=== PATIENT | female | born 1995 | race Caucasian/White ===

== ENCOUNTER 2021-10-05 12:25 | Outpatient (REF) | payer MEDICAID, OTHER, SELFPAY ==
--- NOTE | ~2021-10-05 | XR_ITS ---
EXAMINATION: XR LUMBOSACRAL SPINE CLINICAL INFORMATION: Low back pain COMPARISON: None TECHNIQUE: Three views of the lumbosacral spine. FINDINGS: Normal alignment of the lumbar spine. Lumbar vertebral body heights and disc spaces are well-maintained. No significant degenerative changes of the lumbar spine. XR/XR lumbar spine 2-3V IMPRESSION: Unremarkable radiographs of the lumbar spine.
== END 2021-10-05 12:26 | disposition home or self-care (01) ==
LOC: HO.XRAY 12:25
PROVIDERS: PCP Internal Medicine; Visit Provider Internal Medicine
DX: M54.50 Low back pain, unspecified (principal)
CPT/HCPCS: 72100

== ENCOUNTER 2021-10-13 08:18 | Outpatient (REF) | payer MEDICAID, OTHER, SELFPAY ==
--- NOTE | ~2021-10-13 | US_ITS ---
EXAMINATION: US RETROPERITONEAL LIMITED (RENAL ONLY) CLINICAL INFORMATION: Microscopic hematuria, history of UTIs. COMPARISON: None TECHNIQUE: Real-time imaging of the kidneys. FINDINGS: RIGHT KIDNEY: 10.2 x 3.8 x 4.1 cm (SAG x AP x TRV). The kidney is normal in size, contour, and echogenicity. Renal cortical thickness is normal. No calculi or focal parenchymal lesions. No hydronephrosis. LEFT KIDNEY: 10.5 x 4.4 x 4.2 cm (SAG x AP x TRV). The kidney is normal in size, contour, and echogenicity. Renal cortical thickness is normal. No calculi or focal parenchymal lesions. No hydronephrosis. US/US renal BI IMPRESSION: Unremarkable bilateral renal ultrasound.
== END 2021-10-13 08:19 | disposition home or self-care (01) ==
LOC: HO.US 08:18
PROVIDERS: PCP Internal Medicine; Visit Provider Internal Medicine
DX: R31.29 Other microscopic hematuria (principal); Z87.440 Personal history of urinary (tract) infections
CPT/HCPCS: 76775

== ENCOUNTER 2023-04-18 11:48 | Outpatient (REF) | payer MEDICAID, OTHER, SELFPAY ==
[2023-04-18 16:19] LABS: H Pylori Breath Test Negative (Negative)
== END 2023-04-18 11:49 | disposition home or self-care (01) ==
LOC: HO.HHCLNP 11:48
PROVIDERS: Visit Provider Internal Medicine
DX: R10.13 Epigastric pain (principal); Z86.19 Personal history of other infectious and parasitic diseases
CPT/HCPCS: 83013

== ENCOUNTER 2023-04-27 07:47 | Outpatient (REF) | payer MEDICAID, OTHER, SELFPAY ==
--- NOTE | ~2023-04-27 | US_ITS ---
EXAMINATION: US ABDOMEN COMPLETE CLINICAL INFORMATION: Postprandial epigastric abdominal pain. Rule out cholecystitis. COMPARISON: Renal ultrasound 10/13/2021. TECHNIQUE: Real-time imaging of the abdominal viscera. Limited images of the liver demonstrate diffuse increase in echogenicity which is characteristic of primary hepatocellular disease, possibly due to hepatic steatosis and further limits visualization. FINDINGS: PANCREAS: Limited visualization of pancreatic tail and head. Imaged portion of pancreatic body is unremarkable. ABDOMINAL AORTA: Nonaneurysmal. INFERIOR VENA CAVA: Visualized portions are normal. LIVER: Diffuse increase in echogenicity of the liver is characteristic of primary hepatocellular disease, possibly due to hepatic steatosis and further limits visualization. GALLBLADDER: Multiple small gallstones.No gallbladder wall thickening. COMMON BILE DUCT: Normal in caliber measuring 0.21 cm in diameter. RIGHT KIDNEY: No hydronephrosis. No renal calculi. Renal cortical thickness is normal. Limited visualization. The kidney measures 11.1 cm in maximum dimension. LEFT KIDNEY: No hydronephrosis. No renal calculi. Renal cortical thickness is normal. Limited visualization. The kidney measures 10.8 cm in maximum dimension. SPLEEN: Normal. The spleen measures 8.5 cm in maximum dimension. FREE FLUID: None. US/US abdomen complete IMPRESSION: Cholelithiasis.
== END 2023-04-27 07:48 | disposition home or self-care (01) ==
LOC: HO.HMGCX 07:47
PROVIDERS: PCP Internal Medicine; Visit Provider Internal Medicine
DX: R10.84 Generalized abdominal pain (principal); R10.13 Epigastric pain
CPT/HCPCS: 76700

== ENCOUNTER 2023-12-31 09:21 | Outpatient (REF) | payer MEDICAID, OTHER, SELFPAY ==
--- NOTE | ~2023-12-31 | US_ITS ---
EXAMINATION: MM DIAGNOSTIC DIGITAL BREAST TOMOSYNTHESIS, BILATERAL US BREAST LIMITED, LEFT MAMMOGRAPHY: CLINICAL INFORMATION: 28-year-old female complaining of left breast pain 12:00 axis. COMPARISON: Mammography: No prior. TECHNIQUE: Digital breast tomosynthesis is performed in both the craniocaudal and mediolateral oblique views along with computer-aided detection (CAD). Synthesized 2D images are generated from the tomosynthesis. In addition, a left mediolateral full field 3-D view was obtained x2. FINDINGS: The breasts are heterogeneously dense, which may obscure small masses (ACR BI-RADS breast composition Category c). There are no suspicious masses, suspicious grouped calcifications, or areas of architectural distortion in either breast. The parenchymal pattern is stable from prior exams. There are no mammographic abnormalities which correlate with the left breast 12:00 region of breast pain. ULTRASOUND: CLINICAL INFORMATION: Left breast 12:00 pain. COMPARISON: None TECHNIQUE: Targeted sonographic evaluation was performed using a high frequency linear transducer. Left breast was targeted in the area of pain as indicated by the patient, 12:00 axis. Selected archived documentation. FINDINGS: LEFT BREAST: There is heterogeneously dense fibroglandular tissue. No suspicious mass is seen. There is no pathologic acoustic shadowing. There is no cystic abnormality. No mammographic correlate to the region of left breast pain is present. US/US breast LT limited mamm only IMPRESSION: No findings suspicious for malignancy in either breast. No mammographic or sonographic correlate to the region of breast pain left breast 12:00 axis. Recommend clinical management. OVERALL ASSESSMENT: Mammography: BI-RADS 1 - Negative Ultrasound: BI-RADS 1 - Negative RECOMMENDATION: 1. Patient should be managed based on the clinical impression. Results were provided to the patient at time of visit by the technologist. This patient's information was entered into a reminder system with a target due date for their next mammogram.
== END 2023-12-31 09:22 | disposition home or self-care (01) ==
LOC: HO.MAMMO 09:21
PROVIDERS: Visit Provider Advanced Practice Midwife
DX: N64.4 Mastodynia (principal)
CPT/HCPCS: 76642; 77062; 77066

== ENCOUNTER → 2023-12-31 09:30 | Outpatient (BNV) | payer SELFPAY | PROVIDERS: Visit Provider Radiology Diagnostic Radiology | DX: N64.4 Mastodynia (principal) | CPT/HCPCS: 76642; 77062; 77066 ==

== ENCOUNTER 2024-02-07 14:14 | Outpatient (REF) | payer MEDICAID, OTHER, SELFPAY ==
--- NOTE | ~2024-02-07 | US_ITS ---
EXAMINATION: US SOFT TISSUE NECK CLINICAL INFORMATION: Left neck pain with swelling COMPARISON: None available. TECHNIQUE: Ultrasound of the neck soft tissues is performed with high- frequency zuniga-scale imaging and color Doppler. Ultrasound of the left neck/submandibular area over the area of pain indicated by the patient Findings: Ultrasound of the area of pain indicated by the patient demonstrates 2 benign-appearing lymph nodes with fatty raman and central vascular flow. These measure 0.7 x 0.4 x 0.6 cm and 1.1 x 0.3 x 0.7 cm. US/US soft tiss head and/or neck IMPRESSION: Painful area indicated by the patient corresponds to 2 benign-appearing lymph nodes.
== END 2024-02-07 14:15 | disposition home or self-care (01) ==
LOC: HO.US 14:14
PROVIDERS: Visit Provider Nurse Practitioner
DX: M54.2 Cervicalgia (principal); R22.1 Localized swelling, mass and lump, neck
CPT/HCPCS: 76536

== ENCOUNTER 2025-06-12 14:11 | Outpatient (REF) | payer MEDICAID, OTHER, SELFPAY ==
--- OUTSIDE RECORDS SUMMARY | 2025-06-12 09:00 | XMS_ITS | Encounter Summary ---
Author Organization [email or web address] Address [address] [facility] [address] [place] [address] Care Team Providers Care Global Supply Chain Director Name Role Phone Neida Seay MD Primary Care Provide r Reason for Referral * Imaging (Routine) - Authorized Specialty Diagnoses / Procedures Referred By Contac t Referred To Contact Radiology Diagnoses Pelvic pain Procedures US Pelvis Transvaginal Neida Seay MD [address] [place] [address] Phone: tel: fax: [address] Phone: tel: fax: Referral ID Status Reason Start Date Expiration Date V isits Requested Visits Authorized [id number] Authorized 06/12/2025 06/12/2026 1 1 * Imaging (Routine) - Authorized Specialty Diagnoses / Procedures Referred By Contac t Referred To Contact Radiology Diagnoses Pelvic pain Procedures Us Pelvis complete Neida Seay MD [address] [place] [address] Phone: tel: fax: [address] Phone: tel: fax: Referral ID Status Reason Start Date Expiration Date V isits Requested Visits Authorized [id number] Authorized 06/12/2025 06/12/2026 1 1 Encounter Details Date Type Department Care Team (Late st Contact Info) Description 06/12/2025 9:00 AM EDT Office Visit [facility] [address] [place] [address] Neida Seay MD [address] [place] [address] Pelvic pain; Vaginal discharge; Acne vulgaris; Chronic gastritis without bleeding, unspecified gastritis type; Health care maintenance Social History Tobacco Use Types Packs/Day Years Used Date Smoking Tobacco: Never Passive Smoke Exposure: Never Smokeless Tobacco: Never Depression Answer Date Recorded Patient Health Questionnaire-9 Score 0 06/12/2025 Patient Health Questionnaire-9 Score 0 06/12/2025 Last PHQ-9: Questionnaire Data Not on file 0 06/12/2025 Housing Stability Answer Date Recorded What is your housing situation today? I do not have housing (Staying with others, in a hotel, in a nursing home, living outside on the street, on a beach, in a car, or in a park 06/03/[address] you li ve. Do you have problems with any of the following? None of the above 06/03/2025 Food Insecurity Answer Date Recorded Within the past 12 months, y ou worried that your food would run out before you got money to buy more: Never True 06/03/2025 Within the past 12 months,th e food you bought just didn't last and you didn't have enough money to get more: Never True 11/2024 Transportation Answer Date Recorded In the past 12 months, has l ack of transportation kept you from medical appts, meetings, work or from getting things needed for daily living? No 06/03/2025 Utilities Answer Date Recorded In the past 12 months, has t he electric, gas, oil or water company threatened to shut off services in your home? No 06/03/2025 Depression Answer Date Recorded Patient Health Questionnaire-2 Score 0 06/12/2025 Internet Access Answer Date Recorded Internet Access Q1 Yes 06/03/2025 Internet Access Q2 Not on file 06/03/2025 Comments No Sex and Gender Information Value Date Recorded Sex Assigned at Female 07/31/2022 10:36 AM EDT Legal Sex Female 10:36 AM EDT Gender Identity Female 07/31/2022 10:36 AM EDT Sexual Orientation Straight 07/31/2022 10 :36 AM EDT documented as of this encounter Last Filed Vital Signs Vital Sign Reading Time Taken Comments Blood Pressure 110/78 06/12/2025 9:08 AM EDT Pulse 79 06/12/2025 9:08 AM EDT Temperature 35.1 C (95.2 F) 06/12/2025 9:08 AM EDT Respiratory Rate 15 06/12/2025 9:08 AM EDT Oxygen Saturation 96% 06/12/2025 9:08 AM EDT Inhaled Oxygen Concentration - - Weight 66.5 kg (146 lb 9.6 oz) 06/12/2025 9:08 A M EDT Height 149.9 cm (4' 11 ) 06/12/2025 9:08 AM EDT Body Mass Index 29.61 06/12/2025 9:08 AM EDT documented in this encounter Functional Status * Over the past 2 weeks, how often have you been bothered by any of the following problems? Question Answer Date of Assessment Author Patient Health Questionnaire-2 Score 0 06/01 9:17 AM EDT Madhuri Issa MA * Little interest or pleasure in doing things Answer Date of Assessment Author Not at all 06/12/2025 9:17 AM EDT Vijay Issa ra, [place] * Feeling down, depressed, or hopeless Answer Date of Assessment Author Not at all 06/12/2025 9:17 AM EDT Vijay Issa ra, [place] * Trouble falling or staying asleep, or sleeping too much Answer Date of Assessment Author Not at all 06/12/2025 9:17 AM EDT Vijay Issa ra, [place] * Feeling tired or having little energy Answer Date of Assessment Author Not at all 06/12/2025 9:17 AM EDT Vijay Issa ra, [place] * Poor appetite or overeating Answer Date of Assessment Author Not at all 06/12/2025 9:17 AM EDT Vijay Issa ra, [place] * Feeling bad about yourself - or that you are a failure or have let yourself or your family down Answer Date of Assessment Author Not at all 06/12/2025 9:17 AM Vijay Dick ra, [place] * Trouble concentrating on things, such as reading the newspaper or watching television Answer Date of Assessment Author Not at all 06/12/2025 9:17 AM Vijay Dick ra, [place] * Moving or speaking so slowly that other people could have noticed? Or the opposite - being so fidgety or restless that you have been moving around a lot more than usual. Answer Date of Assessment Author Not at all 06/12/2025 9:17 AM EDVijay Vazquez ra, [place] * Thoughts that you would be better off or hurting yourself in some way Answer Date of Assessment Author Not at all 06/12/2025 9:17 AM Vijay Dick ra, [place] * Patient Health Questionnaire-9 Score Answer Date of Assessment Author 0 06/12/2025 9:17 AM Vijay Dick ra, [place] * Over the last 2 weeks, how often have you been bothered by any of the following problems? Question Answer Date of Assessment Author Feeling nervous, anxious, or on edge 0 06/01 9:17 AM EDMadhuri Vazquez MA Not being able to stop or co ntrol worrying 0 06/12/2025 9:17 AM Madhuri Dick MA Worrying too much about diff erent things 0 06/12/2025 9:17 AM Madhuri Dick MA Trouble relaxing 0 06/12/2025 9:17 AM EDT Madhuri Parrish MA Being so restless that it is hard to sit still 0 06/12/2025 9:17 AM Madhuri Dick MA Becoming easily annoyed or irritable 0 06/01 9:17 AM Madhuri Dick MA Feeling afraid as if somethi ng awful might happen 0 06/12/2025 9:17 AM Madhuri Dick MA ENOC-7 Total Score 0 06/12/2025 9:17 AM Madhuri Dick MA documented as of this encounter Progress Notes * Neida Pritchard MD - 06/12/2025 9:00 AM EDT SUBJECTIVE: Leola Ortega is a 29 y.o. year old female who presents for New Patient . 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 Lives with:partner and 3 kids - EtOH denies - smoking cigarettes denies - recreational drug use denies Diet:regular Exercise:sedentary LMP: on nexplanon Surgeries/Hospitalizations: cholecystectomy PAP done on 05/24/2022 it was PAP alone not with HPV I will repeat it since she would be due PMHx:Gastritis FMHx:none Immunizations: Reviewed Acute Concerns: Vaginal discharge and pelvic discomfort for the past 5 months, patient does not have her period sheis on nexplanon Patient also reports she has been having acne problems for a long time, reports problem has been worse lately it is painful and inflamed located on forehead and face mainly she has not used any [id number] products yet Social History Social History Narrative Not on file Problem List[1] History of Helicobacter infection Epigastric pain Calculus of gallbladder with cholecystitis without biliary obstruction Sore throat Neck pain on left side Abnormal tympanic membrane of left ear Pelvic pain Vaginal discharge Acne vulgaris Chronic gastritis Health care maintenance Family History[2] Review of Systems Constitutional: Negative. HENT: Negative. Respiratory: Negative. Cardiovascular: Negative. Genitourinary: Positive for pelvic pain and vaginal discharge. Negative for decreased urine volume,difficulty urinating, dyspareunia, dysuria, enuresis, flank pain, frequency, genital sores, hematuria, menstrual problem, urgency, vaginal bleeding and vaginal pain. OBJECTIVE: Vitals: 06/12/25 0908 BP: 110/78 BP Location: Left arm Patient Position: Sitting BP Cuff Size: Adult Pulse: 79 Resp: 15 Temp: 95.2 ??F (35.1 ??C) TempSrc: Temporal SpO2: 96% Weight: 146 lb 9.6 oz (66.5 kg) Height: 4' 11 (1.499 m) Physical Exam Constitutional: Appearance: Normal appearance. Cardiovascular: Rate and Rhythm: Normal rate and regular rhythm. Pulmonary: Effort: Pulmonary effort is normal. Breath sounds: Normal breath sounds. Abdominal: General: Abdomen is flat. Palpations: Abdomen is soft. Musculoskeletal: Right lower leg: No edema. Left lower leg: No edema. Neurological: Mental Status: She is alert. Follow Up: Follow up for next available PAP smear . Medications Ordered Prior to Encounter[3] Problem List Items Addressed This Visit Pelvic pain I will order a pelvic and transvaginal ultrasound and contact patient with results Relevant Orders Us Pelvis complete US Pelvis Transvaginal Vaginal discharge BV and CG will be done today patient will be contacted with results Relevant Orders HIV-1/2 Antigen and Antibodies, Fourth Generation, with Reflexes Hepatitis C Antibody with Reflex to HCV, RNA, Quantitative, Real-Time PCR RPR (Monitor) with Reflex to Titer Hepatitis B Surface Antibody, Qualitative Hepatitis B surface antigen, EIA Hepatitis B Core Antibody, Total Bacterial Vaginosis Panel Chlamydia/N. Gonorrhoeae RNA, TMA, Vaginal Acne vulgaris I will start patient on local tretinoin gel at bedtime and doxycycline 100 mg daily I advised to avoid sunlight and apply sunblock if she is going to be outside Relevant Medications tretinoin (Retin-A) 0.01 % gel doxycycline (Vibra-Tabs) 100 MG tablet Chronic gastritis I advise patient to avoid NSAIDs, spicy and acid food, I advise to eat at the same time every day, I advise to elevate the head of the bed and take medications as prescribe Health care maintenance Relevant Orders CBC auto differential Comprehensive Metabolic Panel Hemoglobin A1c Lipid Panel, Standard Vitamin D, 25-Hydroxy, Total, Immunoassay TSH with Reflex to Free T4 [1] Patient Active Problem List Diagnosis History of Helicobacter infection Epigastric pain Calculus of gallbladder with cholecystitis without biliary obstruction Sore throat Neck pain on left side Abnormal tympanic membrane of left ear Pelvic pain Vaginal discharge Acne vulgaris Chronic gastritis Health care maintenance [2] No family history on file. [3] Current Outpatient Medications on File Prior to Visit Medication Sig Dispense Refill lansoprazole (Prevacid) [address] capsule Take 1 capsule (30 mg) by mouth before breakfast. Do not crush or chew. 60 capsule 0 No current facility-administered medications on file prior to visit. documented in this encounter Miscellaneous Notes * Assessment & Plan Note - Neida Pritchard MD - 06/12/2025 9:52 AM EDT Associated Problem(s): Acne vulgaris I will start patient on local tretinoin gel at bedtime and doxycycline 100 mg daily I advised to avoid sunlight and apply sunblock if she is going to be outside * Assessment & Plan Note - Neida Pritchard MD - 06/12/2025 9:52 AM EDT Associated Problem(s): Vaginal discharge BV and CG will be done today patient will be contacted with results * Assessment & Plan Note - Neida Pritchard MD - 06/12/2025 9:51 AM EDT Associated Problem(s): Pelvic pain I will order a pelvic and transvaginal ultrasound and contact patient with results * Assessment & Plan Note - Neida Pritchard MD - 06/12/2025 9:51 AM EDT Associated Problem(s): Chronic gastritis I advise patient to avoid NSAIDs, spicy and acid food, I advise to eat at the same time every day, I advise to elevate the head of the bed and take medications as prescribe documented in this encounter Plan of Treatment Scheduled Orders Name Type Priority Associated Diagnoses Orde r Schedule Us Pelvis complete Imaging Routine Pelvic pain Expected: 06/12/2025, Expires: 06/12/2026 US Pelvis Transvaginal Imaging Routine Pelvic pain Expected: 06/12/2025, Expires: 06/12/2026 CBC auto differential Lab Routine Health care maintenance Expected: 06/12/2025 (Approximate), Expires: 06/12/2026 Comprehensive Metabolic Panel Lab Routine Health care maintenance Expected: 06/12/2025 (Approximate), Expires: 06/12/2026 Hemoglobin A1c Lab Routine Health care maintenance Expected: 06/12/2025 (Approximate), Expires: 06/12/2026 HIV-1/2 Antigen and Antibodies, Fourth Generation, with Reflexes Lab Routine Vaginal discharge Expected: 06/12/2025 (Approximate), Expires: 06/12/2026 Hepatitis C Antibody with Reflex to HCV, RNA, Quantitative, Real-Time PCR Lab Routine Vaginal discharge Expected: 06/12/2025, Expires: 06/12/2026 Lipid Panel, Standard Lab Routine Health care maintenance Expected: 06/12/2025 (Approximate), Expires: 06/12/2026 Vitamin D, 25-Hydroxy, Total, Immunoassay Lab Routine Health care maintenance Expected: 06/12/2025 (Approximate), Expires: 06/12/2026 TSH with Reflex to Free T4 Lab Routine Health care maintenance Expected: 06/12/2025 (Approximate), Expires: 06/12/2026 RPR (Monitor) with Reflex to Titer Lab Routine Vaginal discharge Expected: 06/12/2025, Expires: 06/12/2026 Hepatitis B Surface Antibody, Qualitative Lab Routine Vaginal discharge Expected: 06/12/2025 (Approximate), Expires: 06/12/2026 Hepatitis B surface antigen, EIA Lab Routine Vaginal discharge Expected: 06/12/2025 (Approximate), Expires: 06/12/2026 Hepatitis B Core Antibody, Total Lab Routine Vaginal discharge Expected: 06/12/2025 (Approximate), Expires: 06/12/2026 documented as of this encounter Procedures Procedure Name Priority Date/Time Associated Diagnosis Comments BACTERIAL VAGINOSIS PANEL Routine 06/12/2025 9:52 AM EDT Vaginal discharge CHLAMYDIA/N. GONORRHOEAE RNA, TMA, UROGENITAL Routine 06/12/2025 9:52 AM EDT Vaginal discharge documented in this encounter Results * Chlamydia/N. Gonorrhoeae RNA, TMA, Vaginal (06/12/2025 9:52 AM EDT) Pathologist [facility] CT PCR NOT DETECTED Not Detect. [facility] Comment:A not detected test result does not exclude the possibilityof infection because test results can be affected byimproper specimen collection, concurrent antibiotic therapy,or the number of organisms in the specimen which may bebelow the sensitivity of the test. As with many diagnostictests, results from the Xpert CT/NG assay should beinterpreted in conjunction with other laboratory andclinical data available to the clinician.Xpert CT/NG performance has not been evaluated in patientsless than 14 years of age. The assay should not be used forthe evaluationof suspected sexual abuse or for other medico-legalindications. Additional testing is recommended in anycircumstance when false positive or false negative resultscould lead to adverse medical, social or psychologicalconsequences. NG PCR NOT DETECTED Not Detect. [facility] Comment:A not detected test result does not exclude the possibilityof infection because test results can be affected byimproper specimen collection, concurrent antibiotic therapy,or the number of organisms in the specimen which may bebelow the sensitivity of the test. As with many diagnostictests, results from the Xpert CT/NG assay should beinterpreted in conjunction with other laboratory andclinical data available to the clinician.Xpert CT/NG performance has not been evaluated in patientsless than 14 years of age. The assay should not be used forthe evaluationof suspected sexual abuse or for other medico-legalindications. Additional testing is recommended in anycircumstance when false positive or false negative resultscould lead to adverse medical, social or psychologicalconsequences. Swab Vaginal structure / Unknown 06/12/2025 9:52 AM EDT 06/12/2025 2:12 PM EDT us Neida Pritchard MD LAB MICROBIOLOGY - NERFL ORDERABLES Final Result [facility] [address] [place] [phone] * Bacterial Vaginosis Panel (06/12/2025 9:52 AM EDT) TRICHOMONAS VAGINALIS DETECTION BY PCR NOT DETECTED Not Detect [facility] BACTERIAL VAGINOSIS DETECTION BY PCR NEGATIVE Negative [facility] Comment:The BV organism targ ets of the Xpert Xpress MVP test can becommensal in women; Xpert Xpress MVP positive results forbacterial vaginosis should be considered in conjunction withother clinical and patient information to determine thedisease status. Organisms that are not detected by the XpertXpress MVP test have also been reported to be associatedwith BV and aerobic vaginitis.The Xpert Xpress MVP test performance has not been evaluatedin patients under the age of 14. BEATA GROUP DETECTION BY PCR NOT DETECTED Not Detect [facility] Beata glab krusei PCR NOT DETECTED Not Detect [facility] Swab Vaginal structure / Unknown 06/12/2025 9:52 AM EDT 06/12/2025 2:12 PM EDT us Neida Pritchard MD LAB MICROBIOLOGY - GE NERAL ORDERABLES Final Result Performing Organization Address City/[facility] Co de Phone Number [facility] [address] [place] [phone] documented in this encounter Visit Diagnoses Diagnosis Pelvic pain Vaginal discharge Leukorrhea, not specified as infective Acne vulgaris Other acne Chronic gastritis without bleeding, unspecified gastritis type Health care maintenance documented in this encounter Additional Health Concerns Assessment Noted Time PHQ-9 Depression Total Score: 0 06/12/20 25 9:17 AM EDT documented as of this encounter Care Teams Global Supply Chain Director Relationship Specialty Start Date End Date Neida Seay MD [address] [place] [phone] PCP - General Internal Medicine 06/11/23 documented as of this encounter
[2025-06-12 15:44] LABS: Bacterial Vaginosis PCR NEGATIVE (Negative); Candida Group PCR NOT DETECTED (Not Detect); Candida glab krusei PCR NOT DETECTED (Not Detect); Trichomonas vaginalis PCR NOT DETECTED (Not Detect)
[2025-06-12 16:13] LABS: CT PCR NOT DETECTED (Not Detect.); NG PCR NOT DETECTED (Not Detect.)
--- OUTSIDE RECORDS SUMMARY | 2025-06-12 17:07 | XMS_ITS | Encounter Summary ---
Author Organization [employer] Address [address] [facility] 7t [place] [address] Care Team Providers Care Shelter Supervisor Name Role Phone Neida Seay MD Primary Care Provide r Reason for Visit * Reason Onset Date Comments SFS for dentures 03/05/2025 Encounter Details Date Type Department Care Team (Late st Contact Info) Description 03/05/2025 Telephone [facility] ADULT DENTAL [address] [place] [address] Ivanna Hodge, DDS [address] [place] [address] SFS for dentures Social History Tobacco Use Types Packs/Day Years Used Date Smoking Tobacco: Never Passive Smoke Exposure: Never Smokeless Tobacco: Never Comments No Sex and Gender Information Value Date Recorded Sex Assigned at Female 07/31/2022 10:36 AM EDT Legal Sex Female 10:36 AM EDT Gender Identity Female 07/31/2022 10:36 AM EDT Sexual Orientation Straight 07/31/2022 10 :36 AM EDT documented as of this encounter Miscellaneous Notes * Telephone Encounter - Christine Webb - 03/05/2025 12:31 PM EDT Patient is checking in to see if application from 2022 is usable for this current year. Patient hasbeen informed it is a yearly application. Informed patient that I would have call center support representative that handles applications reach out to her to update and proceed with reapplying documented in this encounter Plan of Treatment Not on file documented as of this encounter Visit Diagnoses Not on filedocumented in this encounter Care Teams Shelter Supervisor Relationship Specialty Start Date End Date Neida Seay MD [address] [place] [address] PCP - General Internal Medicine 06/11/23 documented as of this encounter
--- OUTSIDE RECORDS SUMMARY | 2025-06-12 17:07 | XMS_ITS | Encounter Summary ---
Author Organization [facility] Address [address] [place] [address] Care Team Providers Care Aircraft Part Assembler Name Role Phone Neida Seay MD Primary Care Provider Reason for Visit * Reason Onset Date Comments PAC Appt Request - New 02/22/2024 Dx not li sted Encounter Details Date Type Department Care Team (Late st Contact Info) Description 02/22/2024 Telephone [facility] [address] [place] [id number] Telephone Intake, Staff PAC Appt Request - New (Dx not listed) Social History Tobacco Use Types Packs/Day Years Used Date Smoking Tobacco: Never Smokeless Tobacco: Never Comments No Sex and Gender Information Value Date Recorded Sex Assigned at Female 02/29/2024 10:57 AM EDT Legal Sex Female 11:04 AM EDT Gender Identity Not on file Sexual Orientation Not on file documented as of this encounter Miscellaneous Notes * Telephone Encounter - Bela Garcia - 02/22/2024 2:45 PM EDT Left message thru jacquard loom weaver with date and time appointment * Telephone Encounter - Jayme Clark - 02/22/2024 10:44 AM EDT [facility] scheduling for abnormal tympanic membraine of left ear, ? tympsnosclerosis - dx not listed in dt. Notes in media. Please contact pt at [phone] documented in this encounter Plan of Treatment Not on file documented as of this encounter Visit Diagnoses Not on filedocumented in this encounter Care Teams Aircraft Part Assembler Relationship Specialty Start Date End Date Neida Seay MD [address] [place] [address] PCP - General Internal Medicine 02/22/24 documented as of this encounter
--- OUTSIDE RECORDS SUMMARY | 2025-06-12 17:08 | XMS_ITS | Encounter Summary ---
Author Organization [employer] Address [address] [facility] 7t [place] [address] Care Team Providers Care Mica Sizer Name Role Phone Nathaniel Williamson Primary Care Provider Unavail able Neida Seay MD Primary Care Provide r Reason for Visit * Reason Onset Date Comments Appointment Confirmation 05/28/2023 Encounter Details Date Type Department Care Team ([facility] st Contact Info) Description 05/28/2023 Telephone [facility] MEDICINE [address] [place] [address] Nathaniel Williamson AGNP Appointment Confirmation Social History Tobacco Use Types Packs/Day Years Used Date Smoking Tobacco: Never Smokeless Tobacco: Never Comments Unknown Sex and Gender Information Value Date Recorded Sex Assigned at Female 07/31/2022 10:36 AM EDT Legal Sex Female 10:36 AM EDT Gender Identity Female 07/31/2022 10:36 AM EDT Sexual Orientation Straight 07/31/2022 10 :36 AM EDT documented as of this encounter Miscellaneous Notes * Telephone Encounter - Hernán Madden - 05/28/2023 10:47 AM EDT Tc from pt requesting a call from a nurse in regards to a scheduled ultrasound pt has to check her vascular. Please contact pt at [phone] Guatemalan Speaker documented in this encounter Plan of Treatment Not on file documented as of this encounter Visit Diagnoses Not on filedocumented in this encounter Care Teams Mica Sizer Relationship Specialty Start Date End Date Nathaniel Williamson AGNP PCP - General Family Medicine 08/21/22 06/10/23 Neida Seay MD [address] [place] [address] PCP - General Internal Medicine 06/11/23 documented as of this encounter
--- OUTSIDE RECORDS SUMMARY | 2025-06-12 17:08 | XMS_ITS | Clinical Summary ---
Author Organization [facility] Address [address] [place] [address] Care Team Providers Care Tool Crib Attendant Name Role Phone Neida Seay MD Primary Care Provider Allergies No known active allergies Medications omeprazole (PriLOSEC) 40 mg capsule Take 1 capsule (40 mg total) by mouth once a day. 90 capsule 02/29/2024 Active Active Problems Problem Noted Date Diagnosed Date S/P laparoscopic cholecystectomy 07/12/2023 Resolved Problems Problem Noted Date Diagnosed Date Resolved Date Chronic cholecystitis with calculus 06/18/2023 07/12/2023 Assessment & Plan (06/18/2023 11:09 AM EDT): Leola has developed cholecystitis and symptomatic cholelithiasis. She was seen today by both myself and Dr. Coelho. Dr. Coelho is offering elective laparoscopic cholecystectomy with intraoperative cholangiogram. I have been through the procedure in detail including risks. The risks of the procedure were reviewed with the patient including but not limited to pain, infection, bleeding, injury to surrounding structures, need for further procedures, heart attack, stroke and . The patient stated understanding and wishes to proceed with surgery. She understands that if she has a positive cholangiogram there is a possibility that she could require a subsequent ERCP. She knows that she will need a ride to and from the hospital on the day of surgery and someone to stay with her for the first 24 hours. She does have a 2-1/2-year-old and will also need help taking care of the baby for at least the first few days. She will be up and walking that day but we do not want her doing any heavy lifting for about 4 weeks postop. We gave her a booklet about surgery in Latvian and all of her questions were answered today. Our office will reach out to her for scheduling in the near future. We also asked that she stay on a low-fat diet from now until 1 to 2 months postop. Social History Tobacco Use Types Packs/Day Years Used Date Smoking Tobacco: Never Smokeless Tobacco: Never Tobacco Cessation:Counseling Given: Not Answered Comments No Sex and Gender Information Value Date Recorded Sex Assigned at Female 02/29/2024 10:57 AM EDT Legal Sex Female 11:04 AM EDT Gender Identity Not on file Sexual Orientation Not on file Last Filed Vital Signs Vital Sign Reading Time Taken Comments Blood Pressure 120/64 06/29/2023 10:28 AM EDT Pulse 85 06/29/2023 10:16 AM EDT Temperature 36.3 C (97.3 F) 06/29/2023 10:28 AM EDT Respiratory Rate 23 06/29/2023 10:16 AM EDT Oxygen Saturation 98% 06/29/2023 10:16 AM EDT Inhaled Oxygen Concentration - - Weight 63.2 kg (139 lb 6.4 oz) 06/29/2023 6:23 A M EDT Height 157.5 cm (5' 2 ) 06/29/2023 6:23 AM EDT Body Mass Index 25.5 06/29/2023 6:23 AM EDT Plan of Treatment Health Maintenance Due Date Last Done Comments Cervical Cancer Screening 1993 HIV Screening 1993 HPV and Pap Smear 1993 Hepatitis C Screening 1993 Pap Smear 1993 Varicella Vaccines (1 of 2 - 13+ 2-dose series) 2006 Hepatitis B Vaccines (1 of 3 - 19+ 3-dose series) 2012 Alcohol/Substance Use Screening 10/01/2024 Depression Screening and Follow-Up 10/01/2024 Social Drivers of Health Lisa ual Screening 10/01/2024 COVID-19 Vaccine (1 - 2023-2 5 season) 2025 Influenza Vaccine (#1) 2025 07/01/2020 DTaP,Tdap,and Td Vaccines (2 - Td or Tdap) 07/01/2030 07/01/2020 RSV Vaccine (60+ years old a nd patients) (1 - 1-dose 75+ series) 2068 Pneumococcal Vaccine: Pediat thiago (0-5 Years) and At-Risk Patients (6-50 Years) Aged Out No longer eligible b ased on patient's age to complete this topic Insurance Social Moov HSNO/FREE CARE Advance Directives * Full Code (Latest Code Status on File) Date Activated Date Inactivated Comments 06/29/2023 6:23 AM 06/29/2023 1:37 PM Care Teams Tool Crib Attendant Relationship Specialty Start Date End Date Neida Seay MD [address] [place] [address] PCP - General Internal Medicine 02/22/24
--- OUTSIDE RECORDS SUMMARY | 2025-06-12 17:08 | XMS_ITS | Encounter Summary ---
Author Organization [employer] Address [address] [facility] 7[address] [place] [address] Care Team Providers Care Information Systems Security Specialist Name Role Phone Nathaniel Williamson Primary Care Provider Unavail able Neida Seay MD Primary Care Provide r Reason for Visit * Reason Onset Date Comments Nurse Triage 05/25/2023 Encounter Details Date Type Department Care Team (Late st Contact Info) Description 05/25/2023 Telephone [facility] MEDICINE [address] [place] [address] Nathaniel Williamson AGNP Nurse Triage Social History Tobacco Use Types Packs/Day Years [...] encounter Miscellaneous Notes * Telephone Encounter - Palak Dockery RN - 05/31/2023 9:03 AM EDT Noted. Pt went to ED after triage call. Pt to return PRN. All needs met at ED. * Telephone Encounter - Dominique Gilbert RN - 05/25/2023 12:34 PM EDT Call to Leola Ortega, reports 2 months ago seen for epigastric pain. Continues to have this pain. Was supposed to be seen by a specialist regarding Cholecystitis and calculus of gallbladder and has not yet been scheduled. Per pt last 2 days pain is worse. Becomes severe when going from sitting to standing. No vomiting but severe nausea. Per pt pain has been constant for 2 hours. Pt denies any fever. Pt advised of disposition, agrees to [facility] ED now for exam to rule out any worsening ofinflammation or any changes to calculus. Pt advised to call back after evaluation for follow up. Sent to team for status check PRN. Protocol Used: Abdominal Pain - Upper (Adult) Protocol-Based Disposition: Go to ED/UCC Now (or to Office with PCP Approval) Positive Triage Question: * Constant abdominal pain lasting > 2 hours * All higher-acuity triage questions were negative Care Advice Discussed: * Reassurance and Education - Stomach Pain * Reasons To Call Back - Abdomen pain is constant and present for more than 2 hours. - You become worse * Telephone Encounter - Halie Kevin - 05/25/2023 11:02 AM EDT Symptom: Abdominal Pain - Female - Not Outcome: Schedule an urgent appointment (within 4 hours) or talk to a nurse or provider soon Reason: Getting worse The caller accepted this outcome Patient speaks cook islander documented in this encounter Plan of Treatment Not on file documented as of this encounter Visit Diagnoses Not on filedocumented in this encounter Care Teams Information Systems Security Specialist Relationship Specialty Start Date End Date Nathaniel Williamson AGNP PCP - General Family Medicine 08/21/22 06/10/23 Neida Seay MD [address] [place] [address] PCP - General Internal Medicine 06/11/23 documented as of this encounter
--- OUTSIDE RECORDS SUMMARY | 2025-06-12 17:08 | XMS_ITS | Encounter Summary ---
Author Organization [employer] Address [address] [facility] [address] [place] [address] Care Team Providers Care Director Of Therapy Services Name Role Phone Neida Seay MD Primary Care Provide r Encounter Details Date Type Department Care Team (Latest Contact Info) Description 06/12/2025 Travel Social History Tobacco Use Types Packs/Day Years [...] with others, in a hotel, in a prison, living outside on the street, on a [...] AM EDT documented as of this encounter Functional Status * Over the [...] AM Vijay Dick ra, [place] * Trouble falling or staying asleep, or sleeping too much Answer Date of Assessment Author Not at all 06/12/2025 9:17 AM Vijay Dick ra, [place] * Feeling tired or having little energy Answer Date of Assessment Author Not at all 06/12/2025 9:17 AM Vijay Dick ra, [place] * Poor appetite or overeating Answer Date of Assessment Author Not at all 06/12/2025 9:17 AM Vijay Dick ra, [place] * Feeling bad about yourself [...] AM EDT Vijay Issa ra, [place] * Thoughts that you would be better off or hurting yourself in some way Answer Date of Assessment Author Not at all 06/12/2025 9:17 AM EDT Vijay Issa ra, [place] * Patient Health Questionnaire-9 Score Answer Date of Assessment Author 0 06/12/2025 9:17 AM EDT Vijay Issa ra, [place] * Over the last 2 weeks, how often have you been bothered by any of the following problems? Question Answer Date of Assessment Author Feeling nervous, anxious, or on edge 0 06/01 9:17 AM EDT Madhuri Issa MA Not being able to stop or co ntrol worrying 0 06/12/2025 9:17 AM EDT Madhuri Issa MA Worrying too much about diff erent things 0 06/12/2025 9:17 AM EDT Madhuri Issa MA Trouble relaxing 0 06/12/2025 9:17 AM EDT Madhuri Parrish MA Being so restless that it is hard to sit still 0 06/12/2025 9:17 AM EDT Madhuri Issa MA Becoming easily annoyed or irritable 0 06/01 9:17 AM EDT Madhuri Issa MA Feeling afraid as if somethi ng awful might happen 0 06/12/2025 9:17 AM EDT Madhuri Issa MA ENOC-7 Total Score 0 06/12/2025 9:17 AM EDT Madhuri Issa [place] documented as of this encounter Plan of Treatment Not on file documented as of this encounter Visit Diagnoses Not on filedocumented in this encounter Additional Health Concerns Assessment Noted Time PHQ-9 Depression Total Score: 0 06/12/20 25 9:17 AM EDT documented as of this encounter Care Teams Director Of Therapy Services Relationship Specialty Start Date End Date Neida Seay MD [address] [place] [address] PCP - General Internal Medicine 06/11/23 documented as of this encounter
--- OUTSIDE RECORDS SUMMARY | 2025-06-12 17:08 | XMS_ITS | Encounter Summary ---
Author Organization [email or web address] Address [address] [facility] [address]t [place] [address] Care Team Providers Care Supervisor Of Way Name Role Phone Neida Seay MD Primary Care Provide r Encounter Details Date Type Department Care Team (Late st Contact Info) Description 08/10/2023 Abstract [facility] ADULT DENTAL [address] [place] [address] Ivanna Hodge DDS [address] [place] [address] Social History Tobacco Use Types Packs/Day Years Used Date Smoking Tobacco: Never Smokeless Tobacco: Never Comments Unknown Sex and Gender Information Value Date Recorded Sex Assigned at Female 07/31/2022 10:36 AM EDT Legal Sex Female 10:36 AM EDT Gender Identity Female 07/31/2022 10:36 AM EDT Sexual Orientation Straight 07/31/2022 10 :36 AM EDT documented as of this encounter Plan of Treatment Not on file documented as of this encounter Visit Diagnoses Not on filedocumented in this encounter Care Teams Supervisor Of Way Relationship Specialty Start Date End Date Neida Seay MD [address] [place] [address] PCP - General Internal Medicine 06/11/23 documented as of this encounter
--- OUTSIDE RECORDS SUMMARY | 2025-06-12 17:08 | XMS_ITS | Clinical Summary ---
Author Organization [employer] Address [address] [facility] 7t [place] [address] Care Team Providers Care Band Instrument Maker Name Role Phone Neida Seay MD Primary Care Provide r Allergies No known active allergies Medications lansoprazole (Prevacid) [address] capsuleIndication s:Epigastric pain,History of Helicobacter infection Take 1 capsule (30 mg) by mouth before breakfast. Do not crush or chew. 60 capsule 3 Active tretinoin (Retin-A) 0.01 % gelIndications:Ac ne vulgaris Apply topically at bedtime. 45 g 2 5 06/12/20 26 Active doxycycline (Vibra-Tabs) 100 MG tabletIndications :Acne vulgaris Take 1 tablet (100 mg) by mouth Once per day. Take with a full glass of water and do not lie down for at least 30 minutes after. 90 tablet 5 09/10/20 25 Active Active Problems Problem Noted Date Diagnosed Date Pelvic pain 06/12/2025 Assessment & Plan (06/12/2025 9:51 AM EDT): I will order a pelvic and transvaginal ultrasound and contact patient with results Vaginal discharge 06/12/2025 Assessment & Plan (06/12/2025 9:52 AM EDT): BV and CG will be done today patient will be contacted with results Acne vulgaris 06/12/2025 Assessment & Plan (06/12/2025 9:52 AM EDT): I will start patient on local tretinoin gel at bedtime and doxycycline 100 mg daily I advised to avoid sunlight and apply sunblock if she is going to be outside Chronic gastritis 06/12/2025 Assessment & Plan (06/12/2025 9:51 AM EDT): I advise patient to avoid NSAIDs, spicy and acid food, I advise to eat at the same time every day, I advise to elevate the head of the bed and take medications as prescribe Health care maintenance 06/12/2025 Sore throat 02/06/2024 Neck pain on left side 02/06/2024 Assessment & Plan (02/06/2024 6:05 PM EDT): -unsure of odynophagia etiology. Suspect tonsil stone but no evidence of this on PE. -stat US ordered to evaluate for esophageal stricture or spasm -advised warm salt water gargles and ibuprofen TID -follow-up 2 weeks to discuss US results Abnormal tympanic membrane of left ear Assessment & Plan (02/06/2024 5:57 PM EDT): -question tympanosclerosis -may be contributing to throat pain -ENT referral placed Calculus of gallbladder with cholecystitis without biliary obstruction 04/30/2023 History of Helicobacter infection 04/17/2023 Epigastric pain 04/17/2023 Assessment & Plan (04/18/2023 8:57 AM EDT): It seems to be related to gallbladder pathology, however will ro H.Pilory re-infection Urea Breath test for H.Pilory ordered Order US abd Counseled re low fat diet. FU w PCP in 1m Start Lansoprazole 30mg/d x 2mo Encounters Date Type Department Care Team Description 06/12/2025 9:00 AM EDT Office Visit [facility] [address] [place] [phone] Neida Seay MD Pelvic pain; Vaginal discharge; Acne vulgaris; Chronic gastritis without bleeding, unspecified gastritis type; Health care maintenance 06/12/2025 Travel 06/11/2025 Telephone [facility] [address] [place] [phone] Neida Seay MD chart prep 06/03/2025 Patient Outreach [address] [address] Neida Seay MD Pre-visit Planning (SDOH screening negative and tobacco screening negative) 06/03/2025 Patient Outreach [address] [address] Neida Seay MD Pre-visit Planning ((Unable to reach for PVP screening, LVM) to be completed in office ) 04/07/2025 Patient Outreach [address] [phone] Neida Seay MD Pre-visit Planning ((Unable to reach for PVP screening and or LVM) to be completed in office) from Last 3 Months Social History Tobacco Use Types Packs/Day Years Used Date Smoking Tobacco: Never Passive Smoke Exposure: Never Smokeless Tobacco: Never Tobacco Cessation:Counseling Given: Not Answered Depression Answer Date Recorded Patient Health Questionnaire-9 Score 0 06/12/2025 Patient Health Questionnaire-9 Score 0 06/12/2025 Last PHQ-9: Questionnaire Data Not on file 0 06/12/2025 Housing Stability Answer Date Recorded What is your housing situation today? I do not have housing (Staying with others, in a hotel, in a long term, living outside on the street, on a [...] Orientation Straight 07/31/2022 10 :36 AM EDT Last Filed Vital Signs Vital Sign Reading [...] Mass Index 29.61 06/12/2025 9:08 AM EDT Plan of Treatment Health Maintenance Due Date Last Done Comments Dental Prophylaxis 1993 Dental X-Ray: Bitewings 1993 Family Planning (PISQ) 2008 HPV Vaccines (1 - 3-dose series) 2008 Hepatitis B Vaccines (1 of 3 - 19+ 3-dose series) 2012 Dental Oral Exam 06/02/2021 11/29/2020 Dental X-Ray: Full Mouth 12/01/2023 11/29/2020 COVID-19 Vaccine ( - 2024-2 6 season) 2025 06/02/2021, 05/04/2021 Influenza Vaccine (#1) 2025 , 07/01/2020, 07/01/2020 SDOH Screening 06/03/2026 06/03/2025 Alcohol/Substance Use Screening 06/12/2026 06/12/2025 Depression Screening 06/12/2026 06/12/2025, 06/12/2025 Disability Screening 06/12/2026 06/12/2025 Tobacco Screening 06/12/2026 06/12/2025 Cervical Cancer Screening 05/24/2027 HPV/Cotest 05/24/2027 Pap Smear 05/24/2027 05/24/2022 DTaP/Tdap/Td Vaccines (3 - T d or Tdap) 07/01/2030 07/01/2020, 11/14/2019 Zoster Vaccines (1 of 2) 2043 RSV Patients and Patients Aged 60 years or older (1 - 1-dose 75+ series) 2068 HIV Screening Completed 11/14/2019 Hepatitis C Screening Completed 09/16/2021 HIB Vaccines Aged Out No longer eligi ble based on patient's age to complete this topic Hepatitis A Vaccines Aged Out No long er eligible based on patient's age to complete this topic IPV Vaccines Aged Out No longer eligi ble based on patient's age to complete this topic Meningococcal B Vaccine Aged Out No l onger eligible based on patient's age to complete this topic Meningococcal Vaccine Aged Out No rayna daysi eligible based on patient's age to complete this topic Pneumococcal Vaccine: Pediatrics (0 to 5 Years) and At-Risk Patients (6 to 49) Years Aged Out No longer eligible b ased on patient's age to complete this topic RSV under 20 months Aged Out No longe r eligible based on patient's age to complete this topic Rotavirus Vaccines Aged Out No longer eligible based on patient's age to complete this topic Procedures Procedure Name Priority Date/Time Associated Diagnosis Comments CHLAMYDIA/N. GONORRHOEAE RNA, TMA, UROGENITAL Routine 06/12/2025 9:52 AM EDT Vaginal discharge BACTERIAL VAGINOSIS PANEL Routine 06/12/2025 9:52 AM EDT Vaginal discharge THINPREP IMAGING SYSTEM PAP Routine 05/24/2022 11:13 AM EDT ZZZ HISTORICAL HEPATITIS C AB W/REFL TO HCV RNA, QN, PCR Routine 09/16/2021 3:50 PM EST PANORAMIC RADIOGRAPHIC IMAGE Routine 11/29/2020 12:00 AM EST COMPREHENSIVE ORAL EVALUATION - NEW OR ESTABLISHED PATIENT Routine 11/29/2020 12:00 AM EST ZZZ HISTORICAL HIV AB/AG Routine 11/14/2019 3:30 PM EST from Last 3 Months or Most Recently Relevant to Health Maintenance Results * Bacterial Vaginosis Panel (06/12/2025 9:52 AM EDT) TRICHOMONAS VAGINALIS DETECTION BY PCR NOT DETECTED Not Detect [facility] BACTERIAL VAGINOSIS DETECTION BY PCR NEGATIVE Negative [facility] Comment:The BV organism targ ets of [...] DETECTION BY PCR NOT DETECTED Not Detect [facility] Beata glab krusei PCR NOT DETECTED Not Detect [facility] Swab Vaginal structure / Unknown 06/12/2025 9:52 AM EDT 06/12/2025 2:12 PM EDT us Neida Pritchrad MD LAB MICROBIOLOGY - [facility] ORDERABLES Final Result [facility] [address] [place] [phone] * Chlamydia/N. Gonorrhoeae RNA, TMA, Vaginal (06/12/2025 9:52 AM EDT) CT PCR NOT DETECTED Not Detect. [facility] Comment:A not detected test result does [...] psychologicalconsequences. NG PCR NOT DETECTED Not Detect. [facility] Comment:A not detected test result does [...] 9:52 AM EDT 06/12/2025 2:12 PM EDT Neida Pritchard MD LAB MICROBIOLOGY - [facility] ORDERABLES Final Result [facility] [address] [place] [phone] * THINPREP TIS PAP (05/24/2022 11:13 AM EDT) Clinical Information: None given [facility] COMMENT SEE COMMENT [facility] Comment: EXPLANATORY NOTE: The Pap is a screening test for cervical cancer. It is not a diagnostic test and is subject to false negative and false positive results. It is most reliable when a satisfactory sample, regularly obtained, is submitted with relevant clinical findings and history, and when the Pap result is evaluated along with historic and current clinical information. COMMENT: This Pap test has been evaluated with computer assisted technology. [facility] Director Of Sleep : SEE COMMENT [facility] Comment: YP, CT(ASCP) CT screening location: [place] [address] Interpretation/R esult: Negative for intraepithelial lesion or malignancy. [facility] LMP: AMINAUREA? [facility] Prev. BX: NONE GIVEN [facility] Prev. PAP: NONE GIVEN [facility] SOURCE: None given [facility] Statement Of Adequacy: SEE COMMENT [facility] Comment: Satisfactory for evaluation. Endocervical/transformation zone component present. 05/24/2022 11:1 3 AM EDT Darcie BURNHAMM LAB PATHOLOGY ORDERABLES Final Result Performing Organization Address [facility] Co de Phone Number [facility] [address] * HEPATITIS C AB W/REFL TO HCV RNA, QN, PCR (09/16/2021 3:50 PM EST) HEPATITIS C ANTIBODY NON-REACT PABLO NON-REACT PABLO [facility] INDEX 0.01 <1.00 [facility] Comment: HCV antibody was non-reactive. There is no laboratory evidence of HCV infection. In most cases, no further action is required. However, if recent HCV exposure is suspected, a test for HCV RNA (test code 94510) is suggested. For additional information please refer to http://education.commercetools/faq/THJ11s9 (This link is being provided for informational/ educational purposes only.) 09/16/2021 3:50 PM EST Anne Marie Garcia NP HISTORICAL/NON ORDERABLE LABS F inal Result Performing Organization Address [facility] Co de Phone Number [facility] [address] * HIV AB/AG (11/14/2019 3:30 PM EST) HIV AG/AB NONREACTIVE NR [facility] Comment: HIV-1 p24 Ag and/or HIV-1/HIV-2 Ab not detected. A test result that is nonreactive does not exclude the possibility of exposure to or infection with HIV-1 and/or HIV-2. Nonreactive results in this assay for individuals with prior exposure to HIV-1 and/or HIV-2 may be due to antigen and antibody levels that are below the limit of detection of this assay. The [employer] Super[employer] HIV Ag/Ab Combo assay result and supplemental assay results should be interpreted in conjunction with the patient's clinical presentation, history and other laboratory results. If the results are inconsistent with clinical evidence, additional testing is suggested to confirm the result. 11/14/2019 3:30 PM EST us Betty Vieira MD HISTORICAL/NON ORDERABLE LAB S Final Result [facility] [address] from Last 3 Months or Most Recently Relevant to Health Maintenance Insurance LIMITED HSN FULL DENTAL-[facility] MEDICAID LIMITED ADULT DENTAL - HSN FULL (MEDICAID) Care Teams Band Instrument Maker Relationship Specialty Start Date End Date Neida Seay MD [address] [place] [phone] PCP - General Internal Medicine 06/11/23
--- OUTSIDE RECORDS SUMMARY | 2025-06-12 17:08 | XMS_ITS | Encounter Summary ---
Author Organization [employer] Address [address] [facility] 7t [place] [address] Care Team Providers Care Data Keyer Name Role Phone Neida Seay MD Primary Care Provide r Reason for Visit * Reason Onset Date Comments chart prep 06/11/2025 Encounter Details Date Type Department Care Team ([facility] st Contact Info) Description 06/11/2025 Telephone [facility] [address] [place], [place] [phone] Neida Seay MD [address] [place], [place] [phone] chart prep Social History Tobacco Use Types Packs/Day Years [...] with others, in a hotel, in a skilled nursing, living outside on the street, on a [...] encounter Miscellaneous Notes * Telephone Encounter - Cass Burrell MA - 06/11/2025 8:50 AM EDT Chart Prep Labs: not applicable Images: not applicable Referrals: complete Vaccines due: Covid, Flu, Hep B, and HPV Screenings: not applicable Overdue care gaps: SBIRT, PHQ-9, ENOC-7, and Disability screen documented in this encounter Plan of Treatment Not on file documented as of this encounter Visit Diagnoses Not on filedocumented in this encounter Care Teams Data Keyer Relationship Specialty Start Date End Date Neida Seay MD [address] [place] [phone] PCP - General Internal Medicine 06/11/23 documented as of this encounter
== END 2025-06-12 14:12 | disposition home or self-care (01) ==
LOC: HO.LNP 14:11
PROVIDERS: Visit Provider Internal Medicine
DX: Z11.3 Encounter for screening for infections with a predominantly sexual mode of transmission (principal); Z11.8 Encounter for screening for other infectious and parasitic diseases; N89.8 Other specified noninflammatory disorders of vagina
CPT/HCPCS: 81515; 87491; 87591

== ENCOUNTER 2025-08-19 17:18 | Outpatient (REF) | payer MEDICAID, OTHER, SELFPAY ==
--- OUTSIDE RECORDS SUMMARY | 2025-08-19 10:45 | XMS_ITS | Encounter Summary ---
Author Organization [employer] Address [address] [facility] 7t [place] [address] Care Team Providers Care Welder 2Nd Shift Name Role Phone Neida Seay MD Primary Care Provide r Reason for Visit * Reason Comments pap Encounter Details Date Type Department Care Team (Latest Contact Info) Description 08/19/2025 10:45 AM EST Procedure Visit [facility] [address] [place], [place] [phone] Darcie Hong CNM [address] [place] [address] Cervical cancer screening (Primary Dx) Social History Tobacco Use Types Packs/Day Years [...] with others, in a hotel, in a fdc, living outside on the street, on a [...] Q2 Not on file 06/03/2025 Comments No Intention Date Recorded No desire to become (finding) 1 10/19/2024 Sex and Gender Information Value Date Recorded Sex Assigned at Female 07/31/2022 10:36 AM EDT Legal Sex Female 10:36 AM EDT Gender Identity Female 07/31/2022 10:36 AM EDT Sexual Orientation Straight 07/31/2022 10 :36 AM EDT documented as of this encounter Last Filed Vital Signs Vital Sign Reading Time Taken Comments Blood Pressure 112/68 08/19/2025 10:56 AM EST Pulse 82 08/19/2025 10:56 AM EST Temperature 37.1 C (98.7 F) 08/19/2025 10:56 AM EST Respiratory Rate 14 08/19/2025 10:56 AM EST Oxygen Saturation 97% 08/19/2025 10:56 AM EST Inhaled Oxygen Concentration - - Weight 64.4 kg (142 lb) 08/19/2025 10:56 AM EST Height - - Body Mass Index 28.68 06/12/2025 9:08 AM EDT documented in this encounter Progress Notes * Darcie Hong CNM - 08/19/2025 10:45 AM EST Subjective Patient ID: Leola Ortega is a 29 y.o. female who presents for pap Nexplanon replaced 11/2023. Pap NIL 05/2022. Gonorrhea/Chlamydia/trichomonas/yeast/bacterial vaginosis neg 06/2025. Pelvic ultrasound ordered 06/2025, has appointment 09/01/2025 Breast imaging negative 2023, done for breast pain. Denies breast symptoms today. Would like breast and pelvic exam. Amenorrheic, happy with implant. Not planning in the next year. Review of Systems Genitourinary: Negative for dyspareunia, dysuria, frequency, genital sores, hematuria, menstrual problem, pelvic pain, urgency, vaginal bleeding, vaginal discharge and vaginal pain. No abnormal pap, no abnormal bleeding, no breast pain, no breast mass, no nipple discharge Objective BP 112/68 (BP Location: Left arm, Patient Position: Sitting, BP Cuff Size: Adult) Pulse 82 Temp98.7 ??F (37.1 ??C) (Oral) Resp 14 Wt 142 lb (64.4 kg) LMP 08/19/2024 SpO2 97% BMI 28.68 kg/m?? Physical Exam Collar Cutter present: declines clinical staff pharmacist. Constitutional: Appearance: Normal appearance. Chest: Breasts: Right: Normal. No swelling, bleeding, inverted nipple, mass, nipple discharge, skin change or tenderness. Left: Normal. No swelling, bleeding, inverted nipple, mass, nipple discharge, skin change or tenderness. Genitourinary: General: Normal vulva. Labia: Right: No rash, tenderness, lesion or injury. Left: No rash, tenderness, lesion or injury. Vagina: Normal. No signs of injury and foreign body. No vaginal discharge, erythema, tenderness, bleeding or lesions. Cervix: No cervical motion tenderness, discharge, friability, lesion, erythema, cervical bleeding or eversion. Uterus: Normal. Not enlarged and not tender. Adnexa: Right adnexa normal and left adnexa normal. Right: No mass, tenderness or fullness. Left: No mass, tenderness or fullness. Lymphadenopathy: Upper Body: Right upper body: No supraclavicular or axillary adenopathy. Left upper body: No supraclavicular or axillary adenopathy. Skin: Comments: Nexplanon palpable in right arm, site well healed Neurological: Mental Status: She is alert. Psychiatric: Mood and Affect: Mood normal. Behavior: Behavior normal. Assessment/Plan Diagnoses and all orders for this visit: Cervical cancer screening - Pap Smear Cotest 5 y if normal/HPV negative. Will contact with results. Report if implant not palpable. Report prolonged, frequent or heavy bleeding. Remove/replace Nexplanon by 5y from insertion date. May remove any time prior to that if desired. documented in this encounter Plan of Treatment Scheduled Orders Name Type Priority Associated Diagnoses Orde r Schedule Pap Smear Pathology and Cytology Routine Cervical cancer screening Ordered: 08/19/2025 documented as of this encounter Visit Diagnoses Diagnosis Cervical cancer screening- Primary Screening for malignant neoplasm of the cervix documented in this encounter Additional Health Concerns Assessment Noted Time PHQ-9 Depression Total Score: 0 06/12/20 25 9:17 AM EDT documented as of this encounter Care Teams Welder 2Nd Shift Relationship Specialty Start Date End Date Neida Seay MD [address] [place] [phone] PCP - General Internal Medicine 06/11/23 documented as of this encounter
--- OUTSIDE RECORDS SUMMARY | 2025-08-20 05:05 | XMS_ITS | Encounter Summary ---
Author Organization [employer] Address [address] [facility] 7t [place] [address] Care Team Providers Care Die Cast Engineer Name Role Phone Neida Seay MD Primary Care Provide r Encounter Details Date Type Department Care Team (Late st Contact Info) Description 08/10/2023 Abstract [facility] [address] [place] [address] Ivanna Hodge DDS [address] [place] [address] Social History Tobacco Use Types Packs/Day Years [...] on filedocumented in this encounter Care Teams Die Cast Engineer Relationship Specialty Start Date End Date Neida Seay MD [address] [place], [place] [phone] PCP - General Internal Medicine 06/11/23 documented as of this encounter
--- OUTSIDE RECORDS SUMMARY | 2025-08-20 05:05 | XMS_ITS | Encounter Summary ---
Author Organization [employer] Address [address] 7[address] [place] [address] Care Team Providers Care Portable Track Line Marker Name Role Phone Neida Seay MD Primary Care Provide r Encounter Details Date Type Department Care Team (Latest Contact Info) Description 08/19/2025 Travel Social History Tobacco Use Types Packs/Day [...] with others, in a hotel, in a care home, living outside on the street, on [...] documented as of this encounter Care Teams Portable Track Line Marker Relationship Specialty Start Date End Date Neida Seay MD [address] [place] [address] PCP - General Internal Medicine 06/11/23 documented as of this encounter
--- OUTSIDE RECORDS SUMMARY | 2025-08-20 05:05 | XMS_ITS | Encounter Summary ---
Author Organization [employer] Address [address] [facility] 7t [place] [address] Care Team Providers Care Air Brake Worker Name Role Phone Neida Seay MD Primary Care Provide r Reason for Visit * Reason Onset Date Comments SFS for dentures 03/05/2025 Encounter Details Date Type Department Care Team (Late st Contact Info) Description 03/05/2025 Telephone [facility] ADULT DENTAL [address] [place] [address] Ivanna Hodge, DDS [address] [place] [address] SFS for dentures Social History Tobacco Use [...] application. Informed patient that I would have group sales representative that handles applications reach out to her to update and proceed with reapplying documented in this encounter Plan of Treatment Not on file documented as of this encounter Visit Diagnoses Not on filedocumented in this encounter Care Teams Air Brake Worker Relationship Specialty Start Date End Date Neida Seay MD [address] [place] [phone] PCP - General Internal Medicine 06/11/23 documented as of this encounter
--- OUTSIDE RECORDS SUMMARY | 2025-08-20 05:05 | XMS_ITS | Encounter Summary ---
Author Organization [facility] Address [address] [place] [address] Care Team Providers Care Sales And Operations Trainee Name Role Phone Neida Seay MD Primary Care Provider Reason for Visit * Reason Onset Date Comments PAC Appt Request - New 02/22/2024 Dx not li sted Encounter Details Date Type Department Care Team (Late st Contact Info) Description 02/22/2024 Telephone [facility] [address] [place] [phone] Telephone Intake, Staff PAC Appt Request - [...] 02/22/2024 2:45 PM EDT Left message thru nail making machine tender with date and time appointment * Telephone Encounter - Jayme Clark - 02/22/2024 10:44 AM EDT [facility] scheduling for abnormal tympanic membraine of left ear, ? tympsnosclerosis - dx not listed in dt. Notes in media. Please contact pt at [phone] documented in this encounter Plan of Treatment Not on file documented as of this encounter Visit Diagnoses Not on filedocumented in this encounter Care Teams Sales And Operations Trainee Relationship Specialty Start Date End Date Neida Seay MD [address] [place] [address] PCP - General Internal Medicine 02/22/24 documented as of this encounter
--- OUTSIDE RECORDS SUMMARY | 2025-08-20 05:05 | XMS_ITS | Clinical Summary ---
Author Organization [employer] Address [address] [facility] 7t [place] [address] Care Team Providers Care Tenter Frame Back Tender Name Role Phone Neida Seay MD Primary [...] after. 90 tablet 5 09/10/20 25 Active benzoyl peroxide 5 % gelIndications:Ac ne vulgaris Apply topically 2 times daily. 60 g 2 5 06/24/20 26 Active Active Problems Problem Noted Date Diagnosed [...] Encounters Date Type Department Care Team Description 08/19/2025 10:45 AM EST Procedure Visit [facility] [address] [place] [phone] Darcie Hong CNM Cervical cancer screening (Primary Dx) 08/19/2025 Travel 08/18/[address] [address] Darcie Hong CNM chart prep 07/13/[address] [address] Neida Seay MD dec recall 06/24/2025 Orders Only [address] [address] Neida Seay MD Acne vulgaris (Primary Dx) 06/24/[address] [address] Neida Seay MD Medication Question 06/12/2025 9:00 AM EDT Office Visit [address] [address] Neida Seay MD Pelvic pain; Vaginal discharge; Acne vulgaris; Chronic gastritis without bleeding, unspecified gastritis type; Health care maintenance 06/12/2025 Travel 06/11/[address] [address] Neida Seay MD chart prep 06/03/2025 Patient Outreach [address] [address] Neida Seay MD Pre-visit Planning (SDOH screening negative and tobacco screening negative) 06/03/2025 Patient Outreach [address] [address] Neida Seay MD Pre-visit Planning ((Unable to reach for PVP screening, LVM) to be completed in office ) from Last 3 Months Immunizations Immunization Administration Dates Next Due Influenza injectable quadrivalent preservative f ree 09/16/2021 Influenza, IIV3, injectable 07/01/2020 Influenza, seasonal, injectable, preservative fr ee 07/01/2020 Pfizer Covid-19 Vaccine 12+ 06/02/2021, Tdap 07/01/2020,11/14/2019 Social History Tobacco Use Types Packs/Day Years [...] with others, in a hotel, in a detention, living outside on the street, on a [...] (142 lb) 08/19/2025 10:56 AM EST Height 149.9 cm (4' 11 ) 06/12/2025 9:08 AM EDT Body Mass Index 28.68 06/12/2025 9:08 AM EDT Plan of Treatment Health Maintenance Due Date Last Done Comments Dental Prophylaxis 1993 Dental X-Ray: Bitewings 1993 HPV Vaccines (1 - 3-dose series) 2008 Hepatitis B Vaccines (1 of 3 - 19+ 3-dose series) 2012 Dental Oral Exam 06/02/2021 11/29/2020 Dental X-Ray: Full Mouth 12/01/2023 11/29/2020 COVID-19 Vaccine (3 - 2024-2 6 season) 2025 06/02/2021, 05/04/2021 Influenza Vaccine (#1) 2025 , 07/01/2020, 07/01/2020 SDOH Screening 06/03/2026 06/03/2025 Alcohol/Substance Use Screening 06/12/2026 06/12/2025 Depression Screening 06/12/2026 06/12/2025, 06/12/2025 Disability Screening 06/12/2026 06/12/2025 Family Planning (PISQ) 08/19/2026 08/19/2025 Tobacco Screening 08/19/2026 08/19/2025 Cervical Cancer Screening 05/24/2027 HPV/Cotest 05/24/2027 Pap [...] DETECTION BY PCR NOT DETECTED Not Detect [facility] BACTERIAL VAGINOSIS DETECTION BY PCR NEGATIVE Negative [facility] Comment:The BV organism targ ets [...] DETECTION BY PCR NOT DETECTED Not Detect [facility] Beata glab krusei PCR NOT DETECTED Not Detect [facility] Swab Vaginal structure / Unknown 06/12/2025 9:52 AM EDT 06/12/2025 2:12 PM EDT Neida Pritchard MD LAB MICROBIOLOGY - NERAL ORDERABLES Final Result [facility] [address] [place] [phone] * Chlamydia/N. Gonorrhoeae RNA, TMA, Vaginal (06/12/2025 9:52 AM EDT) CT PCR NOT DETECTED Not Detect. [facility] Comment:A not detected test result [...] psychologicalconsequences. NG PCR NOT DETECTED Not Detect. [facility] Comment:A not detected test result [...] us Neida Pritchard MD LAB MICROBIOLOGY - NERAL ORDERABLES Final Result [facility] [address] [place] [phone] * THINPREP TIS PAP (05/24/2022 11:13 [...] has been evaluated with computer assisted technology. [facility] Global Transportation Manager : SEE COMMENT [facility] Comment: YP, CT(ASCP) CT screening location: [address] [address] Interpretation/R esult: Negative for intraepithelial lesion or malignancy. [facility] LMP: AMINAUREA? [facility] Prev. BX: NONE GIVEN [facility] Prev. PAP: NONE GIVEN [facility] SOURCE: None given [facility] Statement Of Adequacy: SEE COMMENT [facility] Comment: Satisfactory for evaluation. Endocervical/transformation zone component present. 05/24/2022 11:1 3 AM EDT us Darcie BURNHAM LAB PATHOLOGY ORDERABLES Final Result Performing Organization Address [facility] de Phone Number [facility] [address] [place] [address], * HEPATITIS C AB W/REFL TO HCV RNA, QN, PCR (09/16/2021 3:50 PM EST) Pathologist [facility] HEPATITIS C ANTIBODY NON-REACT PABLO NON-REACT PABLO [facility] INDEX 0.01 <1.00 [facility] Comment: HCV antibody was non-reactive. There is no laboratory evidence of HCV infection. In most cases, no further action is required. However, if recent HCV exposure is suspected, a test for HCV RNA (test code 48914) is suggested. For additional information please refer to http://education.CellTran/faq/ZKF55x2 (This link is being provided for informational/ educational purposes only.) 09/16/2021 3:50 PM EST Anne Marie Garcia NP HISTORICAL/NON ORDERABLE LABS F inal Result Performing Organization Address [facility] de Phone Number [facility] [address] [place] [address], * HIV AB/AG (11/14/2019 3:30 PM EST) [facility] HIV AG/AB NONREACTIVE NR [facility] [...] of detection of this assay. The [facility] HIV Ag/Ab Combo assay result and supplemental assay results should be interpreted in conjunction with the patient's clinical presentation, history and other laboratory results. If the results are inconsistent with clinical evidence, additional testing is suggested to confirm the result. 11/14/2019 3:30 PM EST Betty Vieira MD HISTORICAL/NON ORDERABLE LAB S Final Result [facility] [address] from Last 3 Months or Most Recently Relevant to Health Maintenance Insurance [place] [facility] ADULT DENTAL - HSN FULL (MEDICAID) Care Teams Tenter Frame Back Tender Relationship Specialty Start Date End Date Neida Seay MD [address] [place] [phone] PCP - General Internal Medicine 06/11/23
--- OUTSIDE RECORDS SUMMARY | 2025-08-20 05:05 | XMS_ITS | Encounter Summary ---
Author Organization [employer] Address [address] [facility] 7t [place] [address] Care Team Providers Care Bridge Expert Name Role Phone Nathaniel Williamson Primary Care Provider Unavail able Neida Seay MD Primary Care Provide r Reason for Visit * Reason Onset Date Comments Appointment Confirmation 05/28/2023 Encounter Details Date Type Department Care Team ([facility] st Contact Info) Description 05/28/2023 Telephone [facility] [address] [place] [address] Nathaniel Williamson AGNP Appointment Confirmation Social History [...] check her vascular. Please contact pt at [phone] Turkmen Speaker documented in this encounter Plan of Treatment Not on file documented as of this encounter Visit Diagnoses Not on filedocumented in this encounter Care Teams Bridge Expert Relationship Specialty Start Date End Date Nathaniel Williamson AGNP PCP - General Family Medicine 08/21/22 06/10/23 Neida Seay MD [address] [place] [address] PCP - General Internal Medicine 06/11/23 documented as of this encounter
--- OUTSIDE RECORDS SUMMARY | 2025-08-20 05:05 | XMS_ITS | Encounter Summary ---
Author Organization [employer] Address [address] [facility] 7t [place] [address] Care Team Providers Care Concrete Pipe Plant Supervisor Name Role Phone Nathaniel Williamson Primary Care Provider Unavail able Neida Seay MD Primary Care Provide r Reason for Visit * Reason Onset Date Comments Nurse Triage 05/25/2023 Encounter Details Date Type Department Care Team (Late st Contact Info) Description 05/25/2023 Telephone [facility] [address] [place] [address] Nathaniel Williamson AGNP Nurse Triage Social History [...] 12:34 PM EDT Call to Leola Ortega, esteban 2 months ago seen for epigastric pain. [...] fever. Pt advised of disposition, agrees to [facility] ED now for exam to rule out [...] The caller accepted this outcome Patient speaks tongan documented in this encounter Plan of Treatment Not on file documented as of this encounter Visit Diagnoses Not on filedocumented in this encounter Care Teams Concrete Pipe Plant Supervisor Relationship Specialty Start Date End Date Nathaniel Williamson AGNP PCP - General Family Medicine 08/21/22 06/10/23 Neida Seay MD [address] [place] [phone] PCP - General Internal Medicine 06/11/23 documented as of this encounter
--- OUTSIDE RECORDS SUMMARY | 2025-08-20 05:05 | XMS_ITS | Clinical Summary ---
Author Organization [facility] Address [address] [place] [address] Care Team Providers Care V Belt Inspector Name Role Phone Neida Seay MD Primary [...] gave her a booklet about surgery in Amharic and all of her questions were answered [...] Drivers of Health Lisa ual Screening 10/01/2024 Influenza Vaccine (#1) 2025 07/01/2020 COVID-19 Vaccine ( - 2024-2 6 season) 2025 DTaP,Tdap,and Td Vaccines (2 - Td or Tdap) 07/01/2030 07/01/2020 Pneumococcal Vaccine: Pediat thiago (0-5 Years) and At-Risk Patients (6-50 Years) Aged Out No longer eligible b ased on patient's age to complete this topic Insurance [place]FREE CARE Advance Directives * Full Code (Latest Code Status on File) Date Activated Date Inactivated Comments 06/29/2023 6:23 AM 06/29/2023 1:37 PM Care Teams V Belt Inspector Relationship Specialty Start Date End Date Neida Seay MD [address] [place] [address] PCP - General Internal Medicine 02/22/24
--- OUTSIDE RECORDS SUMMARY | 2025-08-20 05:05 | XMS_ITS | Encounter Summary ---
Author Organization [employer] Address [address] [facility] 7t [place] [address] Care Team Providers Care Terminal Supervisor Name Role Phone Neida Seay MD Primary Care Provide r Reason for Visit * Reason Onset Date Comments chart prep 08/18/2025 Encounter Details Date Type Department Care Team ([facility] st Contact Info) Description 08/18/2025 Telephone [facility] [address] [place], [place] [phone] Darcie Hong, TERESA [address] [place] [address] chart prep Social History Tobacco Use Types [...] with others, in a hotel, in a half-way, living outside on the street, on a [...] encounter Miscellaneous Notes * Telephone Encounter - Tia Chaidez [place] - 08/18/2025 11:44 AM EST Chart Prep Labs: not applicable Images: not applicable Screenings: PAP Vaccines due: Covid Due, Hep B Due, Flu Due, and HPV Referrals: Not Applicable Overdue care gaps: None documented in this encounter Plan of Treatment Not on file documented as of this encounter Visit Diagnoses Not on filedocumented in this encounter Additional Health Concerns Assessment Noted Time PHQ-9 Depression Total Score: 0 06/12/20 25 9:17 AM EDT documented as of this encounter Care Teams Terminal Supervisor Relationship Specialty Start Date End Date Neida Seay MD [address] [place] [address] PCP - General Internal Medicine 06/11/23 documented as of this encounter
== END 2025-08-19 17:19 | disposition home or self-care (01) ==
LOC: HO.HHCLNP 17:18
PROVIDERS: Visit Provider Advanced Practice Midwife
DX: Z12.4 Encounter for screening for malignant neoplasm of cervix (principal)
CPT/HCPCS: 87626; 88175

== ENCOUNTER 2025-09-01 10:46 | Outpatient (REF) | payer MEDICAID, OTHER, SELFPAY ==
--- NOTE | ~2025-09-01 | US_ITS ---
CLINICAL HISTORY: pain Ultrasound of the female pelvis Comparison: None provided Technique: Grayscale ultrasound with assistance of color Doppler. Transabdominal scanning performed for overall anatomy. Transvaginal scanning performed for better anatomic delineation. Findings: Anteverted and anteflexed uterus measures 8.4 x 3.4 x 4.6 cm. Unremarkable myometrium, no mass is seen. Thin endometrium, small anechoic fluid in the endometrial cavity, endometrium excluding the fluid measures 2 mm. Unremarkable cervix. Normal right ovary, 2.0 x 1.1 x 1.8 cm. No abnormal vascular flow. Normal left ovary, 2.6 x 2.0 x 1.8 cm. No abnormal vascular flow. No free fluid. Impression: Small endometrial fluid, uncertain etiology, otherwise normal exam. This document has been electronically signed by: Nuha Phelps MD on 09/01/2025 13:55:37
--- OUTSIDE RECORDS SUMMARY | 2025-09-01 12:35 | XMS_ITS | Encounter Summary ---
Author Organization [employer] Address [address] [facility] 7t [place] [address] Care Team Providers Care Patient Access Coordinator Name Role Phone Neida Seay MD Primary Care Provide r Encounter Details Date Type Department Care Team (Late st Contact Info) Description 08/10/2023 Abstract [facility] ADULT DENTAL [address] [place] [address] Ivanna Hodge DDS [address] [place] [address] Social History Tobacco Use Types Packs/Day Years [...] on filedocumented in this encounter Care Teams Patient Access Coordinator Relationship Specialty Start Date End Date Neida Seay MD [address] [place], [place] [phone] PCP - General Internal Medicine 06/11/23 documented as of this encounter
--- OUTSIDE RECORDS SUMMARY | 2025-09-01 12:35 | XMS_ITS | Encounter Summary ---
Author Organization [employer] Address [address] [facility] [address] 7t [place] [address] Care Team Providers Care Daycare Teacher Name Role Phone Neida Seay MD Primary Care Provide r Encounter Details Date Type Department Care Team (Late st Contact Info) Description 08/31/2025 Telephone [facility] [address] [place] [address] Maritza Israel MA Social History Tobacco Use Types Packs/Day Years [...] with others, in a hotel, in a [place] [facility], living outside on the street, on a [...] encounter Miscellaneous Notes * Telephone Encounter - Maritza Israel MA - 08/31/2025 1:21 PM EST Spoke to pt with message about the pap ,she is aware. documented in this encounter Plan of Treatment Not on file documented as of this encounter Visit Diagnoses Not on filedocumented in this encounter Additional Health Concerns Assessment Noted Time PHQ-9 Depression Total Score: 0 06/12/20 25 9:17 AM EDT documented as of this encounter Care Teams Daycare Teacher Relationship Specialty Start Date End Date Neida Seay MD [address] [place] [address] PCP - General Internal Medicine 06/11/23 documented as of this encounter
--- OUTSIDE RECORDS SUMMARY | 2025-09-01 12:35 | XMS_ITS | Encounter Summary ---
Author Organization [employer] Address [address] [facility] 7t [place] [address] Care Team Providers Care Software Solutions Architect Name Role Phone Neida Seay MD Primary Care Provide r Encounter Details Date Type Department Care Team (Late st Contact Info) Description 08/26/2025 Results Follow-Up [facility] [address] [place], [place] [phone] Darcie Hong, TEJ [address] [place] [address] Pap Smear Social History Tobacco Use Types Packs/Day Years [...] with others, in a hotel, in a assisted, living outside on the street, on a [...] as of this encounter Miscellaneous Notes * Result Encounter Note - Darcie Hong CNM - 08/26/2025 3:25 PM EST Please let Leola know her pap was normal, HPV negative which is good news. We can repeat in 5 years. Thanks! documented in this encounter Plan of Treatment Not on file documented as of this encounter Visit Diagnoses Not on filedocumented in this encounter Additional Health Concerns Assessment Noted Time PHQ-9 Depression Total Score: 0 06/12/20 25 9:17 AM EDT documented as of this encounter Care Teams Software Solutions Architect Relationship Specialty Start Date End Date Neida Seay MD [address] [place] [id number] PCP - General Internal Medicine 06/11/23 documented as of this encounter
--- OUTSIDE RECORDS SUMMARY | 2025-09-01 12:35 | XMS_ITS | Encounter Summary ---
Author Organization [facility] Address [address] [place] [address] Care Team Providers Care Tobacco Grower Name Role Phone Neida Seay MD Primary Care Provider Reason for Visit * Reason Onset Date Comments PAC Appt Request - New 02/22/2024 Dx not li sted Encounter Details Date Type Department Care Team (Late st Contact Info) Description 02/22/2024 Telephone [facility] [address] [place] [phone] Telephone Intake, Staff PAC Appt Request - [...] 02/22/2024 2:45 PM EDT Left message thru java user interface developer with date and time appointment * Telephone Encounter - Jayme Clark - 02/22/2024 10:44 AM EDT [facility] scheduling for abnormal tympanic membraine of left ear, ? tympsnosclerosis - dx not listed in dt. Notes in media. Please contact pt at [phone] documented in this encounter Plan of Treatment Not on file documented as of this encounter Visit Diagnoses Not on filedocumented in this encounter Care Teams Tobacco Grower Relationship Specialty Start Date End Date Neida Seay MD [address] [place] [address] PCP - General Internal Medicine 02/22/24 documented as of this encounter
--- OUTSIDE RECORDS SUMMARY | 2025-09-01 12:35 | XMS_ITS | Encounter Summary ---
Author Organization [employer] Address [address] [facility] 7t [place] [address] Care Team Providers Care Radar Signal Processing Engineer Name Role Phone Neida Seay MD Primary Care Provide r Reason for Visit * Reason Onset Date Comments SFS for dentures 03/05/2025 Encounter Details Date Type Department Care Team (Late st Contact Info) Description 03/05/2025 Telephone [facility] ADULT DENTAL [address] [place] [address] Ivanna Hodge, DDS [address] [place] [address] SFS for dentures Social History Tobacco Use [...] application. Informed patient that I would have commissary representative that handles applications reach out to her to update and proceed with reapplying documented in this encounter Plan of Treatment Not on file documented as of this encounter Visit Diagnoses Not on filedocumented in this encounter Care Teams Radar Signal Processing Engineer Relationship Specialty Start Date End Date Neida Seay MD [address] [place] [id number] PCP - General Internal Medicine 06/11/23 documented as of this encounter
--- OUTSIDE RECORDS SUMMARY | 2025-09-01 12:35 | XMS_ITS | Encounter Summary ---
Author Organization [employer] Address [address] [facility] 7t [place] [address] Care Team Providers Care Mess Attendant Name Role Phone Nathaniel Williamson Primary Care Provider Unavail able Neida Seay MD Primary Care Provide r Reason for Visit * Reason Onset Date Comments Appointment Confirmation 05/28/2023 Encounter Details Date Type Department Care Team ([facility] st Contact Info) Description 05/28/2023 Telephone [facility] [address] [place] [address] Nathaniel Williamson AGNP Appointment Confirmation Social History [...] check her vascular. Please contact pt at [phone] Lao Speaker documented in this encounter Plan of Treatment Not on file documented as of this encounter Visit Diagnoses Not on filedocumented in this encounter Care Teams Mess Attendant Relationship Specialty Start Date End Date Nathaniel Williamson AGNP PCP - General Family Medicine 08/21/22 06/10/23 Neida Seay MD [address] [place] [address] PCP - General Internal Medicine 06/11/23 documented as of this encounter
--- OUTSIDE RECORDS SUMMARY | 2025-09-01 12:35 | XMS_ITS | Clinical Summary ---
Author Organization [employer] Address [address] [facility] 7[address] [place] [address] Care Team Providers Care Department Assistant Name Role Phone Neiad Seay MD Primary Care Provide r Allergies [...] Encounters Date Type Department Care Team Description 08/31/2025 Telephone [facility] [address] [place] [address] Maritza Israel MA 08/26/2025 Results Follow-Up [facility] [address] [place] [phone] Suha Quintero CNM Pap Smear 08/19/2025 10:45 AM EST Procedure Visit [address] [address] Suha Quintero CNM Cervical cancer screening (Primary Dx) 08/19/2025 Travel 08/18/[address] [address] Suha Quintero CNM chart prep 07/13/[address] [address] Neida Seay MD dec recall 06/24/2025 Orders Only [address] [address] Neida Seay MD Acne vulgaris (Primary Dx) 06/24/[address] [address] Neida Seay MD Medication Question 06/12/2025 9:00 AM EDT Office Visit [address] [address] Neida Seay MD Pelvic pain; Vaginal discharge; Acne vulgaris; Chronic gastritis without bleeding, unspecified gastritis type; Health care maintenance 06/12/2025 Travel 06/11/[address] [address] Neida Seay MD chart prep 06/03/2025 Patient Outreach [address] [address] Neida Seay MD Pre-visit Planning (SDOH screening negative and tobacco screening negative) 06/03/2025 Patient Outreach [address] [address] Neida Seay MD Pre-visit Planning ((Unable to [...] with others, in a hotel, in a fci, living outside on the street, on a [...] (PISQ) 08/19/2026 08/19/2025 Tobacco Screening 08/19/2026 08/19/2025 DTaP/Tdap/Td Vaccines (3 - T d or Tdap) 07/01/2030 07/01/2020, 11/14/2019 Cervical Cancer Screening 08/20/2030 HPV/Cotest 08/20/2030 08/20/2025 Pap Smear 08/20/2030 08/19/2025, 05/24/2022 Zoster Vaccines (1 of 2) 2043 RSV [...] Procedure Name Priority Date/Time Associated Diagnosis Comments HPV DNA, LOW/HIGH RISK Routine 11:30 AM EST Acne vulgaris PAP SMEAR Routine 08/19/2025 11:30 AM EST Cervical cancer screening CHLAMYDIA/N. GONORRHOEAE RNA, TMA, UROGENITAL Routine 06/12/2025 9:52 AM EDT Vaginal discharge BACTERIAL VAGINOSIS PANEL Routine 06/12/2025 9:52 AM EDT Vaginal discharge [facility] HISTORICAL HEPATITIS C AB W/REFL TO HCV RNA, QN, PCR Routine 09/16/2021 3:50 PM EST PANORAMIC RADIOGRAPHIC IMAGE Routine 11/29/2020 12:00 AM EST COMPREHENSIVE ORAL EVALUATION - NEW OR ESTABLISHED PATIENT Routine 11/29/2020 12:00 AM EST ZZZ HISTORICAL HIV AB/AG Routine 11/14/2019 3:30 PM EST from Last 3 Months or Most Recently Relevant to Health Maintenance Results * HPV DNA, Low/High Risk (08/20/2025 11:30 AM EST) HPV High Risk Negative Negative [facility] HPV Genotype 16 Negative Negative [facility] HPV Genotype 18 Negative Negative [facility] Comment:HPV testing performe d at [facility] (CLIA#[id number]), [address] [place] [address].Testing for HPV was performed using the rimidi [employer] StudyEdge0system. The presence of HPV in the female genital tract isassociated with a number of diseases, including cervicalcarcinoma. The HPV DNA high risk pool tests for HPV 31, 33,35, 39, 45, 51, 52, 56, 58, 59, 66 and 68. The testing forHPV 16 and 18 genotypes has also been performed. A positiveresult indicates detection of nucleic acid sequences fromone or more subtypes, whereas a negative result indicatessuch sequences were not detected. 08/20/2025 11:3 0 AM EST 08/21/2025 7:51 AM EST us Suha Quintero [facility] BLOOD ORDERABLES Manju baltazar Result [facility] [address] [place] [phone] * Pap Smear (08/19/2025 11:30 AM EST) Swab Cervix uteri structure / Unknown 08/19/2025 11:30 AM EST 08/20/2025 3:10 PM EST Narrative [facility] - 08/26/2025 3:22 PM EST ----- ------- Name: Leola Franco Age/Sex: 29/F : 1995 Unit#: [id number] Attend Dr: SUHA QUINTERO CNM Re08/19/25 Status: DEP [facility]F [facility] Disch: ----- ------- SPEC : [id number] RECD: 08/20/25 STATUS: ANTON GONSALEZ NUM: [id number] EVON: 08/19/25-[address] [facility] [address]: SUHA QUINTERO ENTERED: 08/21/25 SP TYPE: Pap Smr OTHR DR: ORDERED: Pap Smear Interpretation Satisfactory for evaluation. Negative for intraepithelial lesion or malignancy. HPV High Risk: Negative HPV Genotyping 16: Negative HPV Genotyping 18: Negative Clinical Information LMP: Previous PAP test: 05/2022 NIL Other surgery: Other history: Implantable control Material Received ThinPrep-Cervical ----- ------- Signed (signature on file) LUIS Bran ([facility]) 08/26/25 1522 ----- ------- END OF REPORT Suha BURNHAM LAB CYTOLOGY ORDERABLES F inal Result Performing Organization Address [facility]/ZIP Co de Phone Number [facility] [address] [place] [address] [phone] * Bacterial Vaginosis Panel (06/12/2025 9:52 AM EDT) TRICHOMONAS VAGINALIS DETECTION BY PCR NOT DETECTED Not Detect [facility] BACTERIAL VAGINOSIS DETECTION BY PCR NEGATIVE Negative [facility] Comment:The BV organism targ ets [...] DETECTION BY PCR NOT DETECTED Not Detect [facility] Beata glab krusei PCR NOT DETECTED Not Detect [facility] Swab Vaginal structure / Unknown 06/12/2025 9:52 AM EDT 06/12/2025 2:12 PM EDT us Neida Pritchard MD LAB MICROBIOLOGY - GE NERAL ORDERABLES Final Result Performing Organization Address [facility]/ZIP Co de Phone Number [facility] [address] [place] [address] [phone] * Chlamydia/N. Gonorrhoeae RNA, TMA, Vaginal (06/12/2025 9:52 AM EDT) CT PCR NOT DETECTED Not Detect. [facility] Comment:A not detected test result [...] psychologicalconsequences. NG PCR NOT DETECTED Not Detect. [facility] Comment:A not detected test result [...] EDT Neida Pritchard MD LAB MICROBIOLOGY - [facility] ORDERABLES Final Result [facility] [address] [place] [phone] * HEPATITIS C AB W/REFL TO HCV RNA, QN, PCR (09/16/2021 3:50 PM EST) HEPATITIS C ANTIBODY NON-REACT PABLO NON-REACT PABLO [facility] INDEX 0.01 <1.00 [facility] Comment: HCV antibody was non-reactive. There is no laboratory evidence of HCV infection. In most cases, no further action is required. However, if recent HCV exposure is suspected, a test for HCV RNA (test code 55765) is suggested. For additional information please refer to http://education.Gatekeeper System/faq/SMB12m9 (This link is being provided for informational/ educational purposes only.) 09/16/2021 3:50 PM EST us Anne Marie Garcia NP HISTORICAL/NON ORDERABLE LABS F inal Result Performing Organization Address [facility] de Phone Number [facility] [address] * HIV AB/AG (11/14/2019 3:30 PM EST) [facility] HIV AG/AB NONREACTIVE NR FOUNDATI ON [...] of detection of this assay. The [employer] Adult HIV Ag/Ab Combo assay result and supplemental assay results should be interpreted in conjunction with the patient's clinical presentation, history and other laboratory results. If the results are inconsistent with clinical evidence, additional testing is suggested to confirm the result. 11/14/2019 3:30 PM EST us Betty Vieira MD HISTORICAL/NON ORDERABLE LAB S Final Result Performing Organization Address [facility] de Phone Number [facility] Formerly [facility] Anywhere [address] from Last 3 Months or Most Recently Relevant to Health Maintenance Insurance [employer] F[employer] DENT[employer]-[facility] MEDICAID LIMITED ADULT DENTAL - HSN FULL (MEDICAID) Care Teams Department Assistant Relationship Specialty Start Date End Date Neida Seay MD [address] [place] [phone] PCP - General Internal Medicine 06/11/23
--- OUTSIDE RECORDS SUMMARY | 2025-09-01 12:35 | XMS_ITS | Encounter Summary ---
Author Organization [employer] Address [address] [facility] 7[address] [place] [address] Care Team Providers Care Intelligent Systems Engineer Name Role Phone Nathaniel Williamson Primary Care Provider Unavail able Neida Seay MD Primary Care Provide r Reason for Visit * Reason Onset Date Comments Nurse Triage 05/25/2023 Encounter Details Date Type Department Care Team (Late st Contact Info) Description 05/25/[address] [facility] [address] [place] [address] Nathaniel Williamson AGNP Nurse Triage Social History [...] fever. Pt advised of disposition, agrees to [facility] now for exam to rule out [...] The caller accepted this outcome Patient speaks lao documented in this encounter Plan of Treatment Not on file documented as of this encounter Visit Diagnoses Not on filedocumented in this encounter Care Teams Intelligent Systems Engineer Relationship Specialty Start Date End Date Nathaniel Williamson AGNP PCP - General Family Medicine 08/21/22 06/10/23 Neida Seay MD [address] [place] [phone] PCP - General Internal Medicine 06/11/23 documented as of this encounter
--- OUTSIDE RECORDS SUMMARY | 2025-09-01 12:35 | XMS_ITS | Clinical Summary ---
Author Organization [facility] Address [address] [place] [address] Care Team Providers Care Learning And Development Officer Name Role Phone Neida Seay MD Primary [...] gave her a booklet about surgery in [place] and all of her questions were answered [...] 6:23 AM 06/29/2023 1:37 PM Care Teams Learning And Development Officer Relationship Specialty Start Date End Date Neida Seay MD [address] [place] [phone] PCP - General Internal Medicine 02/22/24
== END 2025-09-01 10:47 | disposition home or self-care (01) ==
LOC: HO.US 10:46
PROVIDERS: PCP Internal Medicine; Visit Provider Internal Medicine
DX: R10.23 Pelvic and perineal pain bilateral (principal)
CPT/HCPCS: 76830; 76856

== ENCOUNTER → 2025-09-01 10:48 | Outpatient (BNV) | payer MEDICAID, SELFPAY | PROVIDERS: PCP Internal Medicine; Visit Provider Radiology Diagnostic Radiology | DX: N85.8 Other specified noninflammatory disorders of uterus (principal); R10.20 Pelvic and perineal pain unspecified side | CPT/HCPCS: 76830; 76856 ==